=== PATIENT | female | born 1980 | race Caucasian/White ===

== ENCOUNTER → 2020-01-12 08:54 | Outpatient (CLI) | payer OTHER, SELFPAY ==
--- NOTE | ~2020-01-12 | MMUS_ITS ---
EXAMINATION: MM diagnostic george BI w vale, US breast BI complete HISTORY: Right breast lump TECHNIQUE: ML, MLO and cc 3-D tomosynthesis images of both breasts were performed and synthetic 2-D i mages were generated. CAD analysis was submitted and interpreted. High resolution bilateral complete breast ultrasound was performed. COMPARISON: None BREAST PARENCHYMAL COMPOSITION: The breasts are heterogeneously dense, which may obscure small masses . FINDINGS: MAMMOGRAPHIC FINDINGS: No suspicious mass, architectural distortion, malignant calcification, skin thickening or retraction of either breast is evident. ULTRASOUND: No suspicious mass or shadowing of either breast is evident. No breast cyst is detected. IMPRESSION: 1. No mammographic evidence of malignancy. 2. Routine mammographic screening is recommended. BI-RADS Category 1: Negative Reviewed, dictated and finalized at location A. IMPRESSION: 1. No mammographic evidence of malignancy. 2. Routine mammographic screening is recommended. BI-RADS Category 1: Negative
== END ==
DX: N63.10 Unspecified lump in the right breast, unspecified quadrant (principal)
CPT/HCPCS: 76641; 77062; 77066; G0279